=== PATIENT | female | born 1980 | race Asian ===

== ENCOUNTER 2022-03-23 19:33 | Emergency (ER) | payer OTHER, SELFPAY ==
[2022-03-23 19:41] VITALS: BP 118/78; PULSE 69; RESP 14; TEMP 37.2; O2SAT 99; BMI 24.8
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
[2022-03-23] MEDS: CYCLOBENZAPRINE 10 MG PREPACK 1 BOTTLE MISC (21:05)
[2022-03-23 21:09] VITALS: BP 116/75; PULSE 67; RESP 14; O2SAT 99
== END 2022-03-23 21:10 | disposition home or self-care (01) ==
PROVIDERS: Emergency Provider Emergency Medicine
DX: S39.012A Strain of muscle, fascia and tendon of lower back, initial encounter (principal); V43.52XA Car driver injured in collision with other type car in traffic accident, initial encounter
CPT/HCPCS: 71046; 99281; 99283